=== PATIENT | female | born 1975 | race Caucasian/White ===

== ENCOUNTER 2018-11-25 10:59 | Emergency (ER) | payer MEDICAID ==
[~2018-11-25] VITALS: Ht 165.1 cm; Wt 68.2 kg
[~2018-11-25 10:59] MED LIST: ACYC200C PO
[2018-11-25] MEDS ORDERED: AMPI500C68 PO (11:08)
[2018-11-25] MEDS ORDERED: BENZONATATE 100 MG CAPSULE PO ONE (12:15)
[2018-11-25] MEDS ORDERED: KETOROLAC TROMETHAMINE 30 MG/ML VIAL IM ONE (12:15)
[2018-11-25] MEDS ORDERED: BENZOCAINE/MENTHOL LOZENGE PO ONE (12:15)
[2018-11-25 12:46] LABS: INFLUENZA TYPE A NEGATIVE FOR TYPE A (NEGATIVE); INFLUENZA TYPE B NEGATIVE FOR TYPE B (NEGATIVE)
[2018-11-25 13:09] VITALS: BP 156/98
== END 2018-11-25 13:09 | disposition home or self-care (01) ==
LOC: EMS 10:59
DX: J06.9 Acute upper respiratory infection, unspecified (principal); F17.210 Nicotine dependence, cigarettes, uncomplicated
CPT/HCPCS: 87804; 96372; 99283; 99406; J1885

== ENCOUNTER 2021-05-07 13:51 | Emergency (ER) | payer MEDICAID ==
[~2021-05-07] VITALS: Ht 165.1 cm; Wt 65.9 kg
[~2021-05-07 13:51] MED LIST changes: -ACYC200C PO; +ACYC200C24 PO; +AMPI500C68 PO
[2021-05-07 14:02] VITALS: BP 146/94
== END 2021-05-07 15:53 | disposition home or self-care (01) ==
LOC: EMS 13:51
DX: S63.501A Unspecified sprain of right wrist, initial encounter (principal); X50.9XXA Other and unspecified overexertion or strenuous movements or postures, initial encounter; Y93.89 Activity, other specified; Y92.89 Other specified places as the place of occurrence of the external cause; Y99.0 Civilian activity done for income or pay
CPT/HCPCS: 99283

== ENCOUNTER 2022-07-04 12:19 | Emergency (ER) | payer MEDICAID ==
[~2022-07-04] VITALS: Ht 165.1 cm; Wt 70.5 kg
[2022-07-04] MEDS ORDERED: GABA-1181 PO (12:58)
[2022-07-04] MEDS ORDERED: NAPR-1024 PO (12:58)
[2022-07-04 13:20] VITALS: BP 146/89
== END 2022-07-04 13:35 | disposition home or self-care (01) ==
LOC: EMS 12:24
DX: M77.42 Metatarsalgia, left foot (principal); F41.9 Anxiety disorder, unspecified; E78.00 Pure hypercholesterolemia, unspecified; I10 Essential (primary) hypertension; F17.210 Nicotine dependence, cigarettes, uncomplicated; G89.29 Other chronic pain; M25.519 Pain in unspecified shoulder; Z90.49 Acquired absence of other specified parts of digestive tract
CPT/HCPCS: 99283

== ENCOUNTER 2023-02-07 16:32 | Emergency (ER) | payer MEDICAID ==
[~2023-02-07] VITALS: Ht 165.1 cm; Wt 64.1 kg
[~2023-02-07 16:32] MED LIST changes: +GABA-1181 PO; +NAPR-1024 PO
[2023-02-07 16:36] VITALS: TEMP 98.3
[2023-02-07] MEDS ORDERED: IBUP-1554 PO (20:15)
[2023-02-07] MEDS ORDERED: ACET-2080 PO (20:15)
[2023-02-07 20:17] VITALS: BP 139/88; PULSE 92; RESP 16
== END 2023-02-07 20:32 | disposition home or self-care (01) ==
LOC: EMS 16:34
DX: S93.402A Sprain of unspecified ligament of left ankle, initial encounter (principal); F41.9 Anxiety disorder, unspecified; E78.00 Pure hypercholesterolemia, unspecified; I10 Essential (primary) hypertension; G89.29 Other chronic pain; M25.519 Pain in unspecified shoulder; F17.210 Nicotine dependence, cigarettes, uncomplicated; Z90.49 Acquired absence of other specified parts of digestive tract; Z98.890 Other specified postprocedural states; W22.8XXA Striking against or struck by other objects, initial encounter; Y93.89 Activity, other specified; Y92.89 Other specified places as the place of occurrence of the external cause; Y99.8 Other external cause status
CPT/HCPCS: 99283